=== PATIENT | female | born 1970 | race Hispanic/Latino ===

== ENCOUNTER 2022-01-15 21:37 | Emergency (ER) | payer OTHER ==
[~2022-01-15] VITALS: Ht 154.9 cm; Wt 86.2 kg
[2022-01-15] MEDS ORDERED: IOHEXOL 350 MG/ML 100ML INFUS..BTL IV ONE (22:02)
[2022-01-15] MEDS ORDERED: CYCL10TA16 PO (22:26)
[2022-01-15] MEDS ORDERED: IBUP-1493 PO (22:26)
[2022-01-15 23:20] VITALS: BP 122/64
[2022-01-16] MEDS ORDERED: CAPTOPRIL (00:42)
== END 2022-01-15 23:25 | disposition home or self-care (01) ==
LOC: EDH 21:37
DX: T14.8XXA Other injury of unspecified body region, initial encounter (principal); M54.2 Cervicalgia; M25.571 Pain in right ankle and joints of right foot; M25.511 Pain in right shoulder; M25.551 Pain in right hip; M25.561 Pain in right knee; V49.59XA Passenger injured in collision with other motor vehicles in traffic accident, initial encounter; Y93.89 Activity, other specified; Y92.89 Other specified places as the place of occurrence of the external cause; Y99.8 Other external cause status
CPT/HCPCS: 99285; 70450; 73600; 73552; 73590; 72125; 71260; 74177; Q9967